=== PATIENT | male | born 1990 | race Caucasian/White ===

== ENCOUNTER 2024-08-13 21:21 | Emergency (ER) | payer SELFPAY ==
--- OUTSIDE RECORDS SUMMARY | 2024-08-13 21:23 | XMS_ITS | Patient Health Summary ---
Author Organization [facility] [employer] Address [address] [place] [address] Care Team Providers Care Extractions Technologist Name Role Phone Unavailable Primary Care Provider Unavailabl e Note from [facility] [employer] [facility] [employer],non-owned Affiliates and Associated Physician Practices is amultiple site organization consisting of ambulatory clinics and hospital sitesin [place], [place], [place] and [place]. This disclosure is being madepursuant to the Care Everywhere program and may not contain all information available regarding this patient. Last updated [email or web address] Medications Be aware that medications may not be up to date on this document. Always verify current medications with the patient. No known medications Active Problems No known active problems Social History Tobacco Use Types Packs/Day Years Used Date Smoking Tobacco: Never Assessed Sex and Gender Information Value Date Recorded Sex Assigned at Not on file Gender Identity Not on file Sexual Orientation Not on file Last Filed Vital Signs Vital Sign Reading Time Taken Comments Blood Pressure 118/70 08/29/2020 4:08 PM RECOVERY OPERATOR Pulse 68 08/29/2020 4:08 PM RECOVERY OPERATOR Temperature 36.7 ??C (98.1 ??F) 08/29/2020 4:08 PM CS T Respiratory Rate 20 08/29/2020 4:08 PM RECOVERY OPERATOR Oxygen Saturation - - Inhaled Oxygen Concentration - - Weight - - Height - - Body Mass Index - -
--- OUTSIDE RECORDS SUMMARY | 2024-08-13 21:23 | XMS_ITS | Referral Summary ---
Author Organization [facility] [employer] Address [address] [place] [address] Care Team Providers Care Family Court Counsellor Name Role Phone Unavailable Primary Care Provider Unavailabl e Source Comments [facility] [employer],non-owned Affiliates and Associated Physician Practices is amultiple site organization consisting of ambulatory clinics and hospital sitesin [place], [place], [place] and [place]. This disclosure is being madepursuant to the Care Everywhere program and may not contain all information available regarding this patient. Last updated 18.[employer] Medications Be aware that medications may not [...] Comments Blood Pressure 118/70 08/29/2020 4:08 PM AMBULANCE PARAMEDIC Pulse 68 08/29/2020 4:08 PM AMBULANCE PARAMEDIC Temperature 36.7 ??C (98.1 ??F) 08/29/2020 4:08 PM CS T Respiratory Rate 20 08/29/2020 4:08 PM AMBULANCE PARAMEDIC Oxygen Saturation - - Inhaled Oxygen Concentration - - Weight - - Height - - Body Mass Index - - Plan of Treatment Not on file
[2024-08-13 21:24] VITALS: BP 154/90; PULSE 89; RESP 20; TEMP 36.7; O2SAT 100
--- OUTSIDE RECORDS SUMMARY | 2024-08-13 21:24 | XMS_ITS | Clinical Summary ---
Author Organization [facility] [employer] Address [address] [place] [address] Care Team Providers Care Library Sales Consultant Name Role Phone Unavailable Primary Care Provider Unavailabl e Source Comments [facility] [employer],non-owned Affiliates and Associated Physician Practices is amultiple site organization consisting of ambulatory clinics and hospital sitesin [place], [place]. This disclosure is being madepursuant to the Care Everywhere program and may not contain all information available regarding this patient. Last updated 18.[facility] [employer] Medications Be aware that medications may not [...] Comments Blood Pressure 118/70 08/29/2020 4:08 PM ENGINEER FIRST ASSISTANT Pulse 68 08/29/2020 4:08 PM ENGINEER FIRST ASSISTANT Temperature 36.7 ??C (98.1 ??F) 08/29/2020 4:08 PM CS T Respiratory Rate 20 08/29/2020 4:08 PM ENGINEER FIRST ASSISTANT Oxygen Saturation - - Inhaled Oxygen Concentration - - Weight - - Height - - Body Mass Index - - Plan of Treatment Health Maintenance Due Date Last Done Comments HIV SCREENING 11/03/2003 HEPATITIS C SCREENING 10/29/2006 DTAP/TDAP/TD VACCINES (1 - Tdap) 11/03/2007 HEPATITIS B VACCINE (1 of 3 - 19+ 3-dose series) 11/03/2007 COVID-19 VACCINE (2023-2 5 season) 2024 INFLUENZA VACCINE (#1) 2024 DEPRESSION SCREENING 07/18/2024 ZOSTER VACCINE (1 of 2) 2038 HIB VACCINE Aged Out No longer eligi ble based on patient's age to complete this topic HPV VACCINE Aged Out No longer eligi ble based on patient's age to complete this topic MENINGOCOCCAL (Group B) VACCINE Aged Out No longer eligible based on patient's age to complete this topic MENINGOCOCCAL VACCINE Aged Out No meredith koby eligible based on patient's age to complete this topic PNEUMOCOCCAL VACCINE Aged Out No long er eligible based on patient's age to complete this topic
--- NOTE | 2024-08-14 01:34 | PC.NURSE ---
Patient called to triage for vital signs. No answer.
--- OUTSIDE RECORDS SUMMARY | 2024-08-14 01:56 | XMS_ITS | Clinical Summary ---
Author Organization [facility] [employer] Address [address] [place] [address] Care Team Providers Care Mail Processing Equipment Mechanic Name Role Phone Unavailable Primary Care Provider Unavailabl e Source Comments [facility] [employer],non-owned Affiliates and Associated Physician Practices is amultiple site organization consisting of ambulatory clinics and hospital sitesin [place], [place], [place] and [place]. This disclosure is being madepursuant to the Care Everywhere program and may not contain all information available regarding this patient. Last updated 18.[facility] [employer] Medications Be aware that medications may not [...] Comments Blood Pressure 118/70 08/29/2020 4:08 PM TIRE SPECIALIST Pulse 68 08/29/2020 4:08 PM TIRE SPECIALIST Temperature 36.7 ??C (98.1 ??F) 08/29/2020 4:08 PM CS T Respiratory Rate 20 08/29/2020 4:08 PM TIRE SPECIALIST Oxygen Saturation - - Inhaled Oxygen Concentration [...]
--- OUTSIDE RECORDS SUMMARY | 2024-08-14 01:56 | XMS_ITS | Patient Health Summary ---
Author Organization [facility] [employer] Address [address] [place] [address] Care Team Providers Care Ict Systems Test Engineer Name Role Phone Unavailable Primary Care Provider Unavailabl e Note from [facility] [employer] [facility] [employer],non-owned Affiliates and Associated Physician Practices is amultiple site organization consisting of ambulatory clinics and hospital sitesin [place], [place], [place] and [place]. This disclosure is being madepursuant to the Care Everywhere program and may not contain all information available regarding this patient. Last updated 18.[employer] Medications Be aware that medications may not [...] Comments Blood Pressure 118/70 08/29/2020 4:08 PM CLAIMS INVESTIGATOR Pulse 68 08/29/2020 4:08 PM CLAIMS INVESTIGATOR Temperature 36.7 ??C (98.1 ??F) 08/29/2020 4:08 PM CS T Respiratory Rate 20 08/29/2020 4:08 PM CLAIMS INVESTIGATOR Oxygen Saturation - - Inhaled Oxygen Concentration - - Weight - - Height - - Body Mass Index - -
--- OUTSIDE RECORDS SUMMARY | 2024-08-14 01:56 | XMS_ITS | Referral Summary ---
Author Organization [facility] [employer] Address [address] [place] [address] Care Team Providers Care Video Game Tester Name Role Phone Unavailable Primary Care Provider Unavailabl e Source Comments [facility] [employer],non-owned Affiliates and Associated Physician Practices is amultiple site organization consisting of ambulatory clinics and hospital sitesin [place], [place], [place] and [place]. This disclosure is being madepursuant to the Care Everywhere program and may not contain all information available regarding this patient. Last updated 04/07/[email or web address] Medications Be aware that medications may not [...] Comments Blood Pressure 118/70 08/29/2020 4:08 PM WATER SOFTENER INSTALLER Pulse 68 08/29/2020 4:08 PM WATER SOFTENER INSTALLER Temperature 36.7 ??C (98.1 ??F) 08/29/2020 4:08 PM CS T Respiratory Rate 20 08/29/2020 4:08 PM WATER SOFTENER INSTALLER Oxygen Saturation - - Inhaled Oxygen Concentration - - Weight - - Height - - Body Mass Index - - Plan of Treatment Not on file
== END 2024-08-14 01:34 | disposition left against medical advice (07) ==
DX: S61.211A Laceration without foreign body of left index finger without damage to nail, initial encounter (principal)
CPT/HCPCS: 99199